=== PATIENT | male | born 1970 | race American Indian/Alaskan Native ===

== ENCOUNTER 2019-04-29 05:49 | Day surgery (SDC) | payer MEDICARE ==
[~2019-04-29 05:49] MED LIST: LACTATED RINGERS 1,000 ML IV SCH
[2019-04-29] MEDS ORDERED: MIDAZOLAM 2 MG/2 ML INJ IV NR (06:00)
[2019-04-29] MEDS ORDERED: VANCOMYCIN 2,000 MG in SODIUM CHLORIDE 0.9% 500 ML 500 ML IV ONE (06:30)
[2019-04-29] MEDS ORDERED: VANCOMYCIN/NS 1 GM/250 ML 1 GM/250 ML BAG IV NR (07:00)
[2019-04-29] MEDS ORDERED: BUPIVACAINE/PF (0.25%) 2.5 MG/ML 30 ML VIAL INFILTRATI ONE ×2 (07:16→08:00)
[2019-04-29] MEDS ORDERED: LIDOCAINE (1%) 10 MG/1 ML VIAL 20 ML MDV ONE (07:16)
--- NOTE | 2019-04-29 07:17 | Anesthesia Day of Surgery ---
Anesthesia Day of Surgery - Day of Surgery Patient Examined: Yes Patient H&P Reviewed: Yes Patient is NPO: Yes
--- NOTE | 2019-04-29 07:17 | Anesthesia Consultation ---
Anesthesia Consult and Med Hx Date of service: 04/29/19 - Airway Anesthetic Teeth Evaluation: Good ROM Head & Neck: Adequate Mental/Hyoid Distance: Adequate Mallampati Class: Class II Intubation Access Assessment: Probably Good (previous easy intubation w/ MAC 4) - Pulmonary Exam CTA: Yes - Cardiac Exam Cardiac Exam: RRR - Pre-Operative Health Status ASA Pre-Surgery Classification: ASA3 Proposed Anesthetic Plan: General - Pulmonary Hx Smoking: Yes (1 PPD X 15 YRS) Hx Respiratory Symptoms: Yes (recent URI; symptoms resolved) SOB: No Hx Sleep Apnea: No (NAIN PRE SCREEN HIGH RISK) - Cardiovascular System Hx Hypertension: Yes Hx Heart Attack/AMI: No Hx Percutaneous Transluminal Coronary Angioplasty (PTCA): No - Central Nervous System CVA: No Hx Back Pain: Yes Hx Psychiatric Problems: Yes (PTSD, anxiety, depression) - Gastrointestinal Hx Gastroesophageal Reflux Disease: No - Endocrine Hx Renal Disease: No Hx Liver Disease: No Hx Non-Insulin Dependent Diabetes: Yes Hx Thyroid Disease: No - Other Systems Hx Obesity: Yes (BMI 41) - Additional Comments Anesthesia Medical History Comments: No hx anesthetic complications.
[2019-04-29] MEDS ORDERED: PHENYLEPHRINE/NS 1,000 MCG/10 ML SYRINGE (OR USE) IV ONE (07:35)
[2019-04-29] MEDS ORDERED: dexAMETHasone 20 MG/5 ML VIAL ONE (07:35)
[2019-04-29] MEDS ORDERED: SUCCINYLCHOLINE CHLORIDE 200 MG/10 ML INJ MDV ONE (07:35)
[2019-04-29] MEDS ORDERED: ONDANSETRON 4 MG/2 ML INJ ONE (07:35)
[2019-04-29] MEDS ORDERED: fentaNYL 100 MCG/2 ML INJ ONE ×3 (07:35→07:52)
[2019-04-29] MEDS ORDERED: GLYCOPYRROLATE 0.4 MG/2 ML INJ ONE (07:35)
[2019-04-29] MEDS ORDERED: ROCURONIUM 50 MG/5 ML INJ IV ONE (07:35)
[2019-04-29] MEDS ORDERED: NEOSTIGMINE 10MG/10 ML INJ MDV ONE (07:35)
[2019-04-29] MEDS ORDERED: LIDOCAINE MPF (2%) 20 MG/1 ML VIAL 5 ML ONE (07:35)
[2019-04-29] MEDS ORDERED: PROPOFOL 200 MG/20 ML VIAL IV ONE (07:36)
[2019-04-29] MEDS ORDERED: LIDOCAINE (1%) 10 MG/1 ML VIAL 20 ML MDV INFILTRATI ONE (08:00)
[2019-04-29] MEDS ORDERED: ALBUTEROL 8.5 GM INHALATION IH ONE (09:03)
--- NOTE | 2019-04-29 09:56 | Short Stay Summary ---
Short Stay Documentation Date of service: 04/29/19 - History Principal diagnosis: soft tissue mass of right upper abdomen and left upper back H&P: obtained from office - Allergies and Medications Current Medications: Allergies Penicillins Allergy (Verified 03/25/18 17:08) Rash Home Medications Medication Instructions Recorded Confirmed Last Taken Type Aspirin [Aspir-Low] 81 mg PO DAILY 03/25/18 04/29/19 04/27/19 History buPROPion SR [Wellbutrin Sr] 150 mg PO TID 03/25/18 04/29/19 04/27/19 History clonazePAM [KlonoPIN] 2 mg PO QHS 03/25/18 04/29/19 04/27/19 History hydroCHLOROthiazide [Hctz] 12.5 mg PO QDAY 03/25/18 04/29/19 04/27/19 History Gemfibrozil 600 mg PO DAILY 04/28/19 04/29/19 04/28/19 History Ibuprofen [Motrin 800 MG tab] 800 mg PO TID 04/28/19 04/28/19 04/27/19 History Triumeq 600-50-300 mg Tablet 300 mg PO DAILY 04/28/19 04/29/19 04/28/19 History Varenicline Tartrate [Chantix] 1 tab PO DAILY 04/28/19 04/29/19 04/27/19 History metFORMIN [Glucophage] 500 mg PO BID 04/28/19 04/29/19 04/27/19 History Cephalexin 500 mg PO QID 04/29/19 04/29/19 04/27/19 History Gabapentin 300 mg PO DAILY 04/29/19 04/29/19 04/27/19 History Lexapro 20 mg PO DAILY 04/29/19 04/29/19 04/27/19 History Thera-M Caplet 1 tab PO DAILY 04/29/19 04/29/19 04/27/19 History traZODone 100 mg PO DAILY 04/29/19 04/29/19 04/27/19 History Active Medications Fentanyl (Sublimaze) 50 mcg IV Q5MIN PRN PRN Reason: Pain , Severe (7-10) Stop: 04/29/19 22:00 Lactated Ringer's (Lactated Ringers) 1,000 mls @ 100 mls/hr IV DIRECT JULIO Last Admin: 04/29/19 06:55 Dose: 100 mls/hr Documented by: Midazolam HCl (Versed) 2 mg IV PREOP NR Stop: 04/29/19 23:59 Last Admin: 04/29/19 07:27 Dose: 2 mg Documented by: - Brief post op/procedure progress note Date of procedure: 04/29/19 Pre-op diagnosis: soft tissue mass left upper back and right upper abdomen Post-op diagnosis: same Procedure: excision soft tissue masses R upper abdomen and left upper back Anesthesia: GETA, local Findings: 1. 15 cm soft tissue mass right upper abdomen 2. 7.5 cm soft tissue mass left upper back Surgeon: PURVI ROSA Estimated blood loss: minimal Pathology: list (1. 15 cm soft tissue mass right upper abdomen 2. soft tissue mass left upper back) Specimen disposition: to lab Condition: stable - Hospital course Hospital course: Pt observed in PACU and discharged to home in stable condition when criteria met - Disposition Condition at discharge: Good Disposition: DC-01 TO HOME OR SELFCARE Short Stay Discharge Plan Activity: no restrictions Diet: regular Wound: per your surgeon's advice, other (see printed discharge instructions) Additional Instructions: please seen printed discharge instructions Follow up with: AKOSUA ADAMS NP-C [Primary Care Provider] - 7 Days PURVI ROSA DO [Staff Physician] - 7 Days Prescriptions: oxyCODONE /ACETAMINOPHEN [Percocet 5/325] 1 tab PO Q6H PRN #20 tab PRN Reason: Pain , Severe (7-10)
[2019-04-29] MEDS: fentaNYL 100 MCG/2 ML INJ IV PRN ×2 (10:05→10:25)
[2019-04-29] MEDS ORDERED: oxyCODONE /ACETAMINOPHEN 5-325MG TAB ONE (10:40)
[2019-04-29] MEDS ORDERED: oxyCODONE /ACETAMINOPHEN 5-325MG TAB PO PRN (10:41)
[2019-04-29 11:36] VITALS: BP 134/85
--- NOTE | 2019-04-29 11:44 | Post Anesthesia Evaluation ---
- Post Anesthesia Evaluation Patient Participated: Yes Airway Patent: Yes Stable Respiratory Function: Yes Nausea/Vomiting: No Temp > 96.8F: Yes Pain Manageable: Yes Adequeate Hydration: Yes Anesthesia Complications: No
--- NOTE | 2019-05-01 06:51 | Operative Report ---
Operative Report Operative Report: Date of procedure: 04/29/19 Pre-op diagnosis: soft tissue mass left upper back and right upper abdomen Post-op diagnosis: same Procedure: excision soft tissue masses R upper abdomen and left upper back Anesthesia: MIKE local Findings: 1. 15 cm soft tissue mass right upper abdomen 2. 7.5 cm soft tissue mass left upper back Surgeon: PUVRI ROSA Estimated blood loss: minimal Pathology: list (1. 15 cm soft tissue mass right upper abdomen 2. soft tissue mass left upper back) Specimen disposition: to lab Condition: stable Hospital course: Pt observed in PACU and discharged to home in stable condition when criteria met Indication: Patient is a 48-year-old male who presented to the office with complaints of pain in his right upper lateral abdominal wall and left upper back both associated with large growths. On physical exam the patient was found to have 2 very large soft tissue masses, one in the right upper lateral abdominal wall and one in the left upper back/shoulder area. Both were tender on palpation however did not show signs of erythema, fluctuance, induration. It was recommended, due to the patient's symptoms of pain, that both masses be excised. The patient was set up for an elective excision. All risks, benefits, alternatives to surgery were discussed with the patient and questions answered. Consent was obtained. Procedure in detail: Patient was identified in the preoperative area, taken back to the operating room, placed on the operating room table in supine position. After anesthesia was induced, the right abdomen was prepped and draped in sterile fashion and a timeout was performed. Local anesthetic was injected into the skin at the intended incision site. An incision was made over the soft tissue mass using a 15 blade. Dissection was then carried down through the skin and subcutaneous tissue using electrocautery until the soft tissue mass was identified. The mass was circumferentially dissected free from the surrounding tissue using a combination of blunt dissection and electrocautery. The mass extended down to the fascia overlying the muscle. Once the mass was completely freed from the surrounding tissue it was excised and measured. This mass measured approximately 15 cm, was lobulated and fatty consistent with a lipoma. The wound was irrigated with saline and meticulously checked for hemostasis. Hemostasis was achieved with a combination of pressure, packing, electrocautery. Once hemostasis was carefully ensured, the wound was closed in a layered fashion. The 2 deep layers were closed with interrupted 3-0 Vicryl sutures. The skin was closed with 4-0 Monocryl subcuticular stitches and skin glue. A corner of the incision was left open and a quarter inch Willard drain was placed through the skin and into the cavity to allow for drainage. The drain was secured using a Tegaderm to the skin. The glue was dry, the incision was covered with 4 x 4 gauze and Elastoplast tape. We then turned our attention to the left upper back mass. The patient was repositioned into the left lateral decubitus position in order to access the area. The left upper back was prepped and draped usual sterile fashion. Local anesthetic was infiltrated into the skin and subcutaneous tissue at the intended incision site. An incision was made over the soft tissue mass using a 15 blade. Dissection was then carried down through the skin and subcutaneous tissue using electrocautery until the soft tissue mass was identified. The mass was circumferentially dissected free from the surrounding tissue using a combination of blunt dissection and electrocautery. Once the mass was completely freed from the surrounding tissue it was excised and measured. This mass measured approximately 7.5 cm, was lobulated and fatty consistent with a lipoma. The wound was irrigated with saline and meticulously checked for hemostasis. Hemostasis was achieved with a combination of pressure, packing, electrocautery. Once hemostasis was carefully ensured, the wound was closed in a layered fashion. The deep layer was closed with interrupted 3-0 Vicryl sutures. The skin was closed with 4-0 Monocryl subcuticular stitches and skin glue. Once the glue was dry, the incision was covered with 4 x 4 gauze and Elastoplast tape. At the end of the case, all sponge, instrument, sharp counts were correct 2. The patient was awoken from anesthesia and transferred to the [facility]. He was extubated and taken to PACU in stable condition.
== END 2019-04-29 05:50 | disposition home or self-care (01) ==
LOC: OR 05:49
PROVIDERS: ATTEND Surgery
DX: R22.2 Localized swelling, mass and lump, trunk (principal); D17.1 Benign lipomatous neoplasm of skin and subcutaneous tissue of trunk; D17.79 Benign lipomatous neoplasm of other sites; F17.210 Nicotine dependence, cigarettes, uncomplicated; E78.00 Pure hypercholesterolemia, unspecified; I10 Essential (primary) hypertension; K21.9 Gastro-esophageal reflux disease without esophagitis; E11.9 Type 2 diabetes mellitus without complications; F32.9 Major depressive disorder, single episode, unspecified; F41.9 Anxiety disorder, unspecified; Z88.0 Allergy status to penicillin; Z79.899 Other long term (current) drug therapy; Z79.82 Long term (current) use of aspirin; Z79.84 Long term (current) use of oral hypoglycemic drugs; Z98.890 Other specified postprocedural states; E66.9 Obesity, unspecified; Z68.41 Body mass index [BMI] 40.0-44.9, adult
CPT/HCPCS: 21931; 22902; 36415; 82962; 84132; 88304; J0330; J1100; J2250; J2370; J2405; J2704; J2710; J3010; J3370; J7040; J7120; 88307

== ENCOUNTER 2019-11-12 10:14 | Outpatient (CLI) | payer MEDICARE ==
--- NOTE | 2019-11-12 11:01 | Cat Scan Report ---
CT ABDOMEN AND PELVIS WITHOUT CONTRAST HISTORY: N50.89Other specified disorders of the male genital organs. Hematuria COMPARISON: None. TECHNIQUE: Helical CT images of the abdomen and pelvis were obtained without administration of intrav enous contrast. Sagittal and coronal reformatted images were reviewed. All CT scans at this location are performed using CT dose reduction for ALARA by means of automated exposure control. FINDINGS: Abdomen/pelvis: Both kidneys are normal size, contour and position. A 2.2 cm hypodensity is identifi ed in the mid left kidney. There are 2 hypodensities in the mid right kidney measuring 1.3 cm and 1.4 cm. These appear to represent simple cysts. No evidence for aggressive mass or nephrolithiasis. No h ydronephrosis. The ureters are normal course and caliber. Normal bladder and prostate gland. A 1.4 cm right adrenal adenoma is identified. The left adrenal gland is unremarkable. Normal liver, biliary system, pancreas, spleen, aorta and bowel loops. Normal appendix. No evidence for free fluid, free air, adenopathy or inflammatory changes. Lungs/bones: No significant abnormality. IMPRESSION: Bilateral renal cysts as described. No nephrolithiasis or clear explanation for hematuria. Right adrenal adenoma. Signer Name: Darren Del Angel Jr, MD Signed: 11/12/2019 10:57 AM Workstation Name: [id number]
== END 2019-11-12 10:15 | disposition home or self-care (01) ==
LOC: CT 10:14
PROVIDERS: ATTEND Urology
DX: N28.1 Cyst of kidney, acquired (principal); D35.01 Benign neoplasm of right adrenal gland; N50.89 Other specified disorders of the male genital organs
CPT/HCPCS: 74176

== ENCOUNTER 2020-06-17 05:23 | Emergency (ER) | payer MEDICARE ==
[2020-06-17] MEDS ORDERED: ASPIRIN 325 MG TAB PO ONE (05:39)
[2020-06-17 06:16] LABS: Hematocrit 45.5 % (35.5-45.6); Hemoglobin 14.8 gm/dl (11.8-15.2); Mean Corpuscular HGB Conc 33 % (32-34); Mean Corpuscular Volume 91 fl (84-94); Platelet Count 355 K/mm3 (140-440); Red Blood Count 5.03 M/mm3 (3.65-5.03); Red Cell Distribution Width 15.7 % (13.2-15.2)
--- NOTE | 2020-06-17 06:29 | Emergency Department Report ---
ED General Adult HPI - General Chief complaint: Chest Pain Stated complaint: CHEST PAIN Time Seen by Provider: 06/17/20 06:09 Source: patient Mode of arrival: Ambulatory Limitations: No Limitations - History of Present Illness Initial comments: Patient is a 49-year-old male presents emergency department for evaluation of shortness of breath and mild diffuse chest discomfort beginning at 2 AM when he woke suddenly from bed, notes he took several puffs of his inhaler with improvement but without resolution of discomfort and shortness of breath. Patie nt states he has had chronic nonproductive cough times several months to years, denies calf pain or swelling, denies recent surgery, denies history of blood clots or blood clotting disorder. Patient denies fever, denies sore throat. - Related Data Home Medications Medication Instructions Recorded Confirmed Last Taken Aspirin [Aspir-Low] 81 mg PO DAILY 03/25/18 04/29/19 04/27/19 buPROPion SR [Wellbutrin SR] 150 mg PO TID 03/25/18 04/29/19 04/27/19 clonazePAM [KlonoPIN] 2 mg PO QHS 03/25/18 04/29/19 04/27/19 hydroCHLOROthiazide [HCTZ] 12.5 mg PO QDAY 03/25/18 04/29/19 04/27/19 Gemfibrozil 600 mg PO DAILY 04/28/19 04/29/19 04/28/19 Ibuprofen [Motrin 800 MG tab] 800 mg PO TID 04/28/19 04/28/19 04/27/19 Triumeq 600-50-300 mg Tablet 300 mg PO DAILY 04/28/19 04/29/19 04/28/19 Varenicline Tartrate [Chantix] 1 tab PO DAILY 04/28/19 04/29/19 04/27/19 metFORMIN [Glucophage] 500 mg PO BID 04/28/19 04/29/19 04/27/19 Cephalexin 500 mg PO QID 04/29/19 04/29/19 04/27/19 Gabapentin 300 mg PO DAILY 04/29/19 04/29/19 04/27/19 Lexapro 20 mg PO DAILY 04/29/19 04/29/19 04/27/19 Thera-M Caplet 1 tab PO DAILY 04/29/19 04/29/19 04/27/19 traZODone 100 mg PO DAILY 04/29/19 04/29/19 04/27/19 Previous Rx's Medication Instructions Recorded Last Taken Type oxyCODONE /ACETAMINOPHEN [Percocet 1 tab PO Q6H PRN #20 tab 04/29/19 Unknown Rx 5/325] predniSONE [Deltasone] 20 mg PO QDAY #12 tab 06/17/20 Unknown Rx Allergies Allergy/AdvReac Type Severity Reaction Status Date / Time Penicillins Allergy Rash Verified 03/25/18 17:08 sulfamethoxazole Allergy Itching Verified 06/17/20 05:35 [From Bactrim] trimethoprim [From Bactrim] Allergy Itching Verified 06/17/20 05:35 ED Review of Systems ROS: Stated complaint: CHEST PAIN Other details as noted in HPI Comment: All other systems reviewed and negative ED Past Medical Hx - Past Medical History Previous Medical History?: Yes Hx Hypertension: Yes Hx Heart Attack/AMI: No Hx Diabetes: Yes (DIET CONTROLLED) Hx GERD: Yes Hx Liver Disease: No Hx Renal Disease: No Hx Sickle Cell Disease: No Hx Headaches / Migraines: No Hx Kidney Stones: No Hx COPD: No Hx Tuberculosis: No Hx HIV: Yes (DX SINCE 2003) - Surgical History Additional Surgical History: scrotal cyst removed, 2 lypmoas removed - Social History Smoking Status: Former Smoker Substance Use Type: None - Medications Home Medications: Home Medications Medication Instructions Recorded Confirmed Last Taken Type Aspirin [Aspir-Low] 81 mg PO DAILY 03/25/18 04/29/19 04/27/19 History buPROPion SR [Wellbutrin SR] 150 mg PO TID 03/25/18 04/29/19 04/27/19 History clonazePAM [KlonoPIN] 2 mg PO QHS 03/25/18 04/29/19 04/27/19 History hydroCHLOROthiazide [HCTZ] 12.5 mg PO QDAY 03/25/18 04/29/19 04/27/19 History Gemfibrozil 600 mg PO DAILY 04/28/19 04/29/19 04/28/19 History Ibuprofen [Motrin 800 MG tab] 800 mg PO TID 04/28/19 04/28/19 04/27/19 History Triumeq 600-50-300 mg Tablet 300 mg PO DAILY 04/28/19 04/29/19 04/28/19 History Varenicline Tartrate [Chantix] 1 tab PO DAILY 04/28/19 04/29/19 04/27/19 History metFORMIN [Glucophage] 500 mg PO BID 04/28/19 04/29/19 04/27/19 History Cephalexin 500 mg PO QID 04/29/19 04/29/19 04/27/19 History Gabapentin 300 mg PO DAILY 04/29/19 04/29/19 04/27/19 History Lexapro 20 mg PO DAILY 04/29/19 04/29/19 04/27/19 History Thera-M Caplet 1 tab PO DAILY 04/29/19 04/29/19 04/27/19 History oxyCODONE /ACETAMINOPHEN [Percocet 1 tab PO Q6H PRN #20 tab 04/29/19 Unknown Rx 5/325] traZODone 100 mg PO DAILY 04/29/19 04/29/19 04/27/19 History predniSONE [Deltasone] 20 mg PO QDAY #12 tab 06/17/20 Unknown Rx ED Physical Exam - General Limitations: No Limitations General appearance: alert, in no apparent distress - Head Head exam: Present: atraumatic, normocephalic - Eye Eye exam: Present: normal appearance - ENT ENT exam: Present: mucous membranes moist - Neck Neck exam: Present: normal inspection - Respiratory Respiratory exam: Present: normal lung sounds bilaterally. Absent: respiratory distress - Cardiovascular Cardiovascular Exam: Present: regular rate, normal rhythm - GI/Abdominal GI/Abdominal exam: Present: soft, normal bowel sounds - Rectal Rectal exam: Present: deferred - Extremities Exam Extremities exam: Present: normal inspection - Back Exam Back exam: Present: normal inspection - Neurological Exam Neurological exam: Present: alert, oriented X3 - Psychiatric Psychiatric exam: Present: normal affect, normal mood - Skin Skin exam: Present: warm, dry, intact, normal color. Absent: rash ED Course Vital Signs 06/17/20 06/17/20 06/17/20 05:28 07:25 09:03 Temperature 97.8 F Pulse Rate 105 H 90 84 Respiratory 18 18 16 Rate Blood Pressure 143/77 Blood Pressure 110/70 121/79 [Right] O2 Sat by Pulse 89 94 100 Oximetry - Reevaluation(s) Reevaluation #1: 02/25/21 06:39 Patient initially treated with Toradol 30 mg IM x1 and prednisone 60 mg p.o. x1. 06/17/20 06:40 06/17/20 13:14 On reevaluation, patient in no acute distress, denies both chest pain and shortness of breath. Patient saturating low 90s while sleeping, near 100 when awake. Patient given DuoNeb prior to discharge. On reevaluation, patient oxygen saturation persistently greater than 96% on room air. ED Medical Decision Making - Lab Data Result diagrams: 06/17/20 06:01 06/17/20 06:01 Lab Results 06/17/20 06/17/20 Range/Units 06:01 06:01 WBC 16.8 H (4.5-11.0) K/mm3 RBC 5.03 (3.65-5.03) M/mm3 Hgb 14.8 (11.8-15.2) gm/dl Hct 45.5 (35.5-45.6) % MCV 91 (84-94) fl MCH 30 (28-32) pg MCHC 33 (32-34) % RDW 15.7 H (13.2-15.2) % Plt Count 355 (140-440) K/mm3 Lymph # (Auto) Sr. [employer] Sodium 139 (137-145) mmol/L Potassium 3.7 (3.6-5.0) mmol/L Chloride 101.6 (98-107) mmol/L Carbon Dioxide 31 H (22-30) mmol/L Anion Gap 10 mmol/L BUN 13 (9-20) mg/dL Creatinine 1.1 (0.8-1.3) mg/dL Estimated GFR > 60 ml/min BUN/Creatinine Ratio 12 % Glucose 128 H (75-100) mg/dL Calcium 9.6 (8.4-10.2) mg/dL Troponin T < 0.010 (0.00-0.029) ng/mL Vital Signs 06/17/20 06/17/20 06/17/20 05:28 07:25 09:03 Temperature 97.8 F Pulse Rate 105 H 90 84 Respiratory 18 18 16 Rate Blood Pressure 143/77 Blood Pressure 110/70 121/79 [Right] O2 Sat by Pulse 89 94 100 Oximetry - EKG Data -: EKG Interpreted by Me (Sinus rhythm 88, no ST-T changes, normal QRS) - Radiology Data Radiology results: report reviewed Chest x-ray: Negative per radiology Critical care attestation.: If time is entered above; I have spent that time in minutes in the direct care of this critically ill patient, excluding procedure time. ED Disposition Clinical Impression: Dyspnea Disposition: DC-01 TO HOME OR SELFCARE Is pt being admited?: No Condition: Stable Instructions: Shortness of Breath, Adult, Rbys-mg-Tlpi Prescriptions: predniSONE [Deltasone] 20 mg PO QDAY #12 tab Referrals: AKOSUA ADAMS COST COORDINATOR-C [Primary Care Provider] - 3-5 Days
--- NOTE | 2020-06-17 06:31 | XRay Report ---
XR chest 1V ap INDICATION / CLINICAL INFORMATION: Chest Pain. COMPARISON: None available. FINDINGS: SUPPORT DEVICES: None. HEART /PULMONARY VASCULATURE: No significant abnormality. LUNGS / PLEURA: No significant pulmonary or pleural abnormality. No pneumothorax. ADDITIONAL FINDINGS: No significant additional findings. IMPRESSION: 1. No acute findings. Signer Name: Wiley Kumar MD Signed: 06/17/2020 6:27 AM Workstation Name: [id number]
[2020-06-17] MEDS ORDERED: KETOROLAC 30 MG/1 ML INJ IM ONE (06:38)
[2020-06-17] MEDS ORDERED: predniSONE 20 MG TAB PO ONE (06:40)
[2020-06-17 06:46] LABS: BUN/Creatinine Ratio 12; Blood Urea Nitrogen 13 mg/dL (9-20); Calcium 9.6 mg/dL (8.4-10.2); Hemolysis Index 0
[2020-06-17] MEDS ORDERED: IPRATROPIUM/ALBUTEROL SULFATE 3 ML AMPUL.NEB IH ONE (08:16)
[2020-06-17 09:04] VITALS: BP 121/79
[2020-06-17 13:51] LABS: Platelet Estimate Consistent w Auto; RBC Morphology Normal; Total Cells Counted 100
== END 2020-06-17 09:11 | disposition home or self-care (01) ==
LOC: ED 05:23
DX: R06.00 Dyspnea, unspecified (principal); R07.89 Other chest pain; I10 Essential (primary) hypertension; E11.9 Type 2 diabetes mellitus without complications; K21.9 Gastro-esophageal reflux disease without esophagitis; Z87.891 Personal history of nicotine dependence; Z98.890 Other specified postprocedural states; Z79.84 Long term (current) use of oral hypoglycemic drugs; Z79.899 Other long term (current) drug therapy; Z88.8 Allergy status to other drugs, medicaments and biological substances; Z88.0 Allergy status to penicillin
CPT/HCPCS: 36415; 71045; 80048; 84484; 85007; 85025; 93005; 94640; 96372; 99284; J1885; J7512

== ENCOUNTER 2020-10-31 23:36 | Emergency (ER) | payer MEDICARE ==
[2020-10-31 23:56] VITALS: BP 166/89
--- NOTE | 2020-11-01 01:03 | XRay Report ---
XR chest routine 2V INDICATION / CLINICAL INFORMATION: SOB/covid symptoms. COMPARISON: 06/17/2020 FINDINGS: SUPPORT DEVICES: None. HEART /PULMONARY VASCULATURE: No significant abnormality. LUNGS / PLEURA: Mild increased interstitial markings. There are also mild bibasilar airspace opacitie s. No pleural effusion. No pneumothorax. ADDITIONAL FINDINGS: No significant additional findings. IMPRESSION: Mild increased interstitial opacities throughout the lungs with mild left greater than right bibasila r airspace opacities. Findings are concerning for developing infiltrate. Signer Name: Wiley Kumar MD Signed: 11/01/2020 12:59 AM Workstation Name: [id number]
== END 2020-11-01 02:00 | disposition left against medical advice (07) ==
LOC: ED 23:36
DX: R43.9 Unspecified disturbances of smell and taste (principal); Z53.21 Procedure and treatment not carried out due to patient leaving prior to being seen by health care provider
CPT/HCPCS: 71046